=== PATIENT | female | born 1995 | race American Indian/Alaskan Native ===

== ENCOUNTER 2019-09-02 15:35 | Emergency (ER) | payer SELFPAY ==
[2019-09-02 16:15] VITALS: BP 119/73
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
== END 2019-09-02 17:10 | disposition left against medical advice (07) ==
LOC: ED 15:35
DX: M54.2 Cervicalgia (principal); M54.9 Dorsalgia, unspecified; Z53.21 Procedure and treatment not carried out due to patient leaving prior to being seen by health care provider

== ENCOUNTER 2019-09-02 22:03 | Emergency (ER) | payer SELFPAY ==
[2019-09-02 22:52] VITALS: BP 117/72
[2019-09-03] MEDS ORDERED: IBUPROFEN 800 MG TAB PO ONE (01:30)
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
== END 2019-09-03 02:30 | disposition home or self-care (01) ==
LOC: ED 22:03
DX: S13.4XXA Sprain of ligaments of cervical spine, initial encounter (principal); S00.03XA Contusion of scalp, initial encounter; J45.909 Unspecified asthma, uncomplicated; Z87.891 Personal history of nicotine dependence; Z87.442 Personal history of urinary calculi; Z88.1 Allergy status to other antibiotic agents; V49.59XA Passenger injured in collision with other motor vehicles in traffic accident, initial encounter; Y93.89 Activity, other specified; Y92.410 Unspecified street and highway as the place of occurrence of the external cause; Y99.8 Other external cause status
CPT/HCPCS: 70450; 72125